=== PATIENT | male | born 1965 | race Two or more races ===

== ENCOUNTER 2017-10-17 12:06 | Emergency (ER) | payer OTHER ==
[2017-10-17] MEDS ORDERED: LIDOCAINE 5% (700 MG) TRANSDERMAL ADH..PATCH TP ONE (14:14)
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
[2017-10-17 15:48] VITALS: BP 130/89
== END 2017-10-17 15:48 | disposition home or self-care (01) ==
LOC: ER 12:06
DX: S16.1XXA Strain of muscle, fascia and tendon at neck level, initial encounter (principal); M54.5 Low back pain; M25.531 Pain in right wrist; M54.9 Dorsalgia, unspecified; M54.2 Cervicalgia; V87.7XXA Person injured in collision between other specified motor vehicles (traffic), initial encounter
CPT/HCPCS: 99284; 72110; 72070; 73110; 72125; L3908